=== PATIENT | female | born 1995 | race Hispanic/Latino ===

== ENCOUNTER 2021-09-06 10:37 | Emergency (ER) | payer MEDICAID, OTHER ==
[~2021-09-06] VITALS: Ht 165.1 cm; Wt 124.7 kg
[2021-09-06] MEDS ORDERED: TETANUS/DIPHTHERIA TOXOID [ADULT] 0.5 ML VIAL IM ONE (11:00)
[2021-09-06] MEDS ORDERED: LIDOCAINE HCL MPF 1% 5ML VIAL ONE (13:16)
[2021-09-06] MEDS ORDERED: CEPH500B PO (13:49)
[2021-09-06 14:06] VITALS: BP 129/79
== END 2021-09-06 14:09 | disposition home or self-care (01) ==
LOC: EEVIPCON 10:37 → EDH 10:37
DX: S91.341A Puncture wound with foreign body, right foot, initial encounter (principal); Y93.89 Activity, other specified; Y92.89 Other specified places as the place of occurrence of the external cause; Y99.8 Other external cause status
CPT/HCPCS: 10120; 73630; 90471; 90714; 99285; J3490